=== PATIENT | male | born 1990 | race Two or more races ===

== ENCOUNTER → 2024-05-08 | Outpatient (CLI) | payer OTHER, SELFPAY ==
--- NOTE | 2024-05-08 14:30 | XR_ITS ---
Examination: Abdomen sonogram, complete Date and time of exam: May 08, 2024 1428 hours INDICATIONS: Right upper abdomen discomfort beginning 2 months ago. Technique: Multiple real-time grayscale transabdominal sonographic images of the abdomen have been obtained. Findings: Normal gallbladder Normal common bile duct 0.2 cm Pancreatic head 1.8 cm Aorta not enlarged Liver 14.4 cm fatty infiltration no focal liver lesions Normal hepatopedal portal venous flow Patent IVC Right kidney 11.1 x 4.8 x 5.0 cm renal cortex 1.5 cm Left kidney 10.9 x 4.7 x 4.5 cm renal cortex 2.0 cm Mild bilateral renal parenchymal scar formation Spleen 8.3 cm IMPRESSION: Normal gallbladder Normal common bile duct Fatty liver Mild bilateral renal parenchymal scar formation
== END | disposition home or self-care (01) ==
LOC: CDIM 14:13
PROVIDERS: PCP Specialist; Referring Provider Specialist; Visit Provider Specialist
DX: K76.0 Fatty (change of) liver, not elsewhere classified (principal); N28.89 Other specified disorders of kidney and ureter
CPT/HCPCS: 76700